=== PATIENT | male | born 1955 | race Hispanic/Latino ===

== ENCOUNTER 2017-09-07 01:14 | Observation (INO) | payer OTHER, SELFPAY ==
[2017-09-07 02:15] VITALS: BMI 35.2
[2017-09-07] MEDS ORDERED: Bisacodyl 5 MG TAB PO PRN (02:43)
[2017-09-07] MEDS ORDERED: Ondansetron HCl/PF 4 MG/2 ML Vial IVP PRN (02:43)
--- NOTE | 2017-09-07 03:46 | PDOC.EVN ---
Event Note - Event Note Event Note: H&P dictation [id number]
[2017-09-07] MEDS ORDERED: Acetaminophen 325 MG TAB PO PRN (04:38)
--- NOTE | 2017-09-07 04:39 | PDOC.EVN ---
Event Note - Event Note Event Note: pt c/o chest pressure like something sitting on his chest hx of CAD check troponin, EKG prn: nitro sl, acetaminophen, tramadol
[2017-09-07 04:41] LABS: #Basophils 0.1 thou/uL (0.0-0.2); #Eosinphils 0.2 thou/uL (0.0-0.7); #Lymphocytes 1.4 thou/uL (1.20-3.40); #Monocytes 0.3 thou/uL (0.11-0.59); #Neutrophils 2.7 thou/uL (1.40-6.50); %Basophils 1.2 % (0.0-1.0); %Eosinophils 4.3 % (0.0-10.0); %Lymphocytes 29.1 % (21.0-51.0); %Monocytes 7.2 % (0.0-10.0); %Neutrophils 58.3 % (42.0-75.0); Hemoglobin 13.6 g/dL (14.0-18.0); Mean Corpuscular HGB CONC 34.3 g/dL (32.0-36.0); Mean Corpuscular Hemoglobin 29.2 pg (27.0-31.0); Mean Platelet Volume 7.1 fL (7.4-10.4); Platelet Count 247 thou/uL (130-400); RBC Distribution Width 13.1 % (11.5-14.5); Red Blood Cell (RBC) Count 4.66 mill/uL (4.70-6.10); White Blood Cell (WBC) Count 4.7 thou/uL (4.8-10.8)
[2017-09-07 04:51] LABS: Anion Gap 13 mmol/L (10-20); BUN (Urea Nitrogen) 14 mg/dL (8.4-25.7); Calc. Creatinine Clearance 111 mL/min (70-130); Calcium 9.4 mg/dL (7.8-10.44); Carbon Dioxide 23 mmol/L (23-31); Chloride 107 mmol/L (98-107); Estimated GFR-MDRD 78; Glucose 112 mg/dL (80-115); Sodium 139 mmol/L (136-145)
[2017-09-07] MEDS: Nitroglycerin 0.4 MG TAB (25 Tab Bottle) SL PRN ×2 (05:01→05:08)
[2017-09-07 05:37] LABS: Troponin I Less than 0.010 ng/mL (< 0.028)
[2017-09-07] MEDS ORDERED: CRANBERRY FRUIT EXTRACT PO SCH (09:00)
[2017-09-07] MEDS ORDERED: BREXPIPRAZOLE 1.5 MG PO SCH (09:00)
[2017-09-07] MEDS ORDERED: LEVOMEFOLATE PO SCH (09:00)
[2017-09-07] MEDS ORDERED: ALGAL OIL PO SCH (09:00)
[2017-09-07] MEDS ORDERED: Enoxaparin Sodium 30 MG/0.3 ML SYRINGE SC SCH (09:00)
[2017-09-07] MEDS ORDERED: Famotidine/PF 20 mg/2ml Vial SLOW IVP SCH (09:00)
[2017-09-07] MEDS: traMADol HCl 50 MG TAB PO PRN (09:27)
[2017-09-07] MEDS: Potassium Chloride 10 MEQ TAB PO SCH (09:28)
[2017-09-07] MEDS: Finasteride 5 MG TAB PO SCH (09:28)
[2017-09-07] MEDS: Torsemide 20 MG TAB PO SCH (09:28)
[2017-09-07] MEDS: Multivitamin W/ Minerals 1 TAB PO SCH (09:28)
[2017-09-07] MEDS: Cyanocobalamin (Vitamin B-12) 1,000 MCG TAB PO SCH (09:30)
[2017-09-07] MEDS: Docusate 100 MG CAP PO SCH ×2 (09:30→20:54)
[2017-09-07] MEDS: Gabapentin 300 MG CAP PO SCH ×3 (09:30→20:54)
[2017-09-07 10:55] LABS: Troponin I Less than 0.010 ng/mL (< 0.028)
[2017-09-07] MEDS ORDERED: Chloraseptic Spray 180 ml Bottle PO PRN (11:23)
[2017-09-07] MEDS: Ubidecarenone 50 MG CAP PO SCH (12:58)
[2017-09-07] MEDS: Doxazosin Mesylate 4 MG TAB PO SCH (12:58)
--- NOTE | 2017-09-07 16:07 | HP ---
PRIMARY CARE PHYSICIAN: Out of town in [place]. CHIEF COMPLAINT: Difficulty swallowing. HISTORY OF PRESENT ILLNESS: This is a 62-year-old male with a prior history of hypertension, coronary artery disease, and CVA in the past, who presents with a 3-4 week history of feeling that there is "something in his throat" particularly with swallowing. He describes a sensation that there is something sitting in the back of his throat that is preventing him from able to complete swallowing that is mild when he is upright, severe when he is lying flat and to the point that over the last 2 days, it has been causing him to choke while he tries to sleep at night and therefore, he has been sleeping upright. In addition, it has caused his CPAP to turn off as well while he has been at home. Patient denies any similar prior episodes. In recent history, he does note that in the past month, he had approximately 10 days of the prolonged upper respiratory infection which he called "flu" but was not tested for such and he was able to improve without requiring any hospitalization or additional medications. At the time of my evaluation, the patient has continued symptoms. Patient was initially seen at the [facility] in [place] before being transferred to our facility for admission. REVIEW OF SYSTEMS: As per HPI. Constitutional: No recent fevers or chills. No significant weight loss or gain. HEENT: No headaches, no dizziness, no visual changes. Patient with swallowing difficulties as noted above mostly with lying down. He has been able to tolerate his baseline diet. Patient has not noticed any change in his speech. He has noticed that he has been over the same time frame having increased nosebleeds, particularly out of his left nostril exclusively. Overall, he says that his left nostril, although it was the one that has the most nosebleeds, has a lot less congestion than his right nostril at this point in time. Cardiovascular: No chest pain, chest pressure, or palpitations. Respiratory: As noted above. No cough, no shortness of breath, no dyspnea with exertion. Gastrointestinal: No nausea, vomiting, abdominal pain, diarrhea, or constipation issues. Genitourinary: No dysuria, changes in urinary frequency, or quantity. Musculoskeletal: No new myalgias or arthralgias. The remainder of the review of systems, otherwise negative. PAST MEDICAL HISTORY: As per above includes hypertension, CVA, NC, BPH, GERD, and obstructive sleep apnea on a CPAP. PAST SURGICAL HISTORY: No prior ENT surgeries. HOME MEDICATIONS: Please see the EMR for full details. His confirmed list currently includes the following; cranberry fruit extract, essentially CoQ10, Levomefolate and Algal, gabapentin 300 mg p.o. t.i.d., brexpiprazole 1.5 mg p.o. daily, potassium chloride 10 mEq take p.o. daily, cyanocobalamin ( vitamin B12) 500 mg p.o. daily, aspirin 81 mg p.o. daily, multivitamin 80 mcg p.o. daily, doxazosin 2 mg p.o. daily, finasteride 5 mg p.o. daily, omeprazole 20 mg p.o. daily, minocycline 100 mg p.o. daily, irbesartan 300 mg p.o. daily, torsemide 20 mg p.o. daily. ALLERGIES: Includes SULFA ANTIBIOTICS without a noted reaction. FAMILY HISTORY: Patient denies any known family history of ear, nose, throat issues or cancers. SOCIAL HISTORY: No tobacco, no alcohol, no illicit drug use. 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 He endorses wishing to be FULL CODE at this point in time. PHYSICAL EXAMINATION: GENERAL: Patient is awake, alert, appropriate, in no acute distress, seated in the hospital bed. HEENT: Equal ocular motions are intact. Patient is normocephalic, atraumatic. Posterior oropharyngeal, no exudate or erythema noted. There appears to be no change in the tonsillar position between the patient's sitting upright and lying flat. He has a small posterior oropharynx that has prominent tonsils in a high palate. No noted erythema as noted above. Nasal examination demonstrates no nasal mucosal erythema or visible polyps or ulcerations and both sides appear to be approximately equal without a significant nasal septum deviation noted. CARDIOVASCULAR: S1, S2. No murmurs, rubs, or gallops. Pulses 2+ bilateral upper extremities, no pitting pedal edema. RESPIRATORY: Grossly clear to auscultation, reasonable air movement. No wheezes, rales, or rhonchi. ABDOMEN: Positive bowel sounds. Large, obese, soft, nontender to palpation. MUSCULOSKELETAL: Moving all 4 extremities independently and able to sit up and reposition in the bed without difficulty or assistance. LABORATORY DATA: Currently, no labs available. He did have a CT of the head and neck from the outside institution that was reviewed by myself. CT of the head essentially negative for any evidence of acute bleed. CT of the neck, I am not appreciating any evidence of abscess formation or mass. ASSESSMENT AND PLAN: This is a 62-year-old male who initially presents with difficulty swallowing. 1. Difficulty swallowing, essentially dysphagia. We will start with a speech evaluation for a swallow evaluation, patient will be n.p.o. except for his medications, sips of water, and ice chips. If this is negative, then to consider a GI consultation if that is unrevealing, then to consider perhaps an ENT consultation. 2. Obstructive sleep apnea. Patient will continue on his home regimen. 3. Hypertension, patient will continue on his home regimen without change. 4. Prior history of myocardial infarction and cerebrovascular accident, continue on his medical regimen. Admit the patient observation status to medical-surgical. Activity as tolerated. Thank you for asked me to care for the patient. Questions or concerns, please contact me at [facility]. ARON
--- NOTE | 2017-09-07 16:43 | EKG ---
Test Reason : Blood Pressure : / mmHG Vent. Rate : 079 BPM Atrial Rate : 079 BPM P-R Int : 162 ms QRS Dur : 076 ms QT Int : 358 ms P-R-T Axes : 025 006 015 degrees QTc Int : 410 ms Normal sinus rhythm Inferior infarct , age undetermined Anterior infarct , age undetermined Poor anterior R wave progression Abnormal ECG No previous ECGs available Confirmed by DR. Rishi MAHMOOD ([id number]) on 09/07/2017 4:43:11 PM Referred By: ARGENIS Confirmed By:DR. Rishi MAHMOOD
[2017-09-07 17:25] LABS: Troponin I Less than 0.010 ng/mL (< 0.028)
[2017-09-07] MEDS: Famotidine 40 MG/4 ML VIAL SLOW IVP SCH (20:54)
[2017-09-07 23:11] LABS: Troponin I Less than 0.010 ng/mL (< 0.028)
[2017-09-08 05:26] LABS: #Basophils 0.1 thou/uL (0.0-0.2); #Eosinphils 0.3 thou/uL (0.0-0.7); #Lymphocytes 2.1 thou/uL (1.20-3.40); #Monocytes 0.5 thou/uL (0.11-0.59); #Neutrophils 3.9 thou/uL (1.40-6.50); %Basophils 1.1 % (0.0-1.0); %Eosinophils 4.1 % (0.0-10.0); %Lymphocytes 30.4 % (21.0-51.0); %Monocytes 6.8 % (0.0-10.0); %Neutrophils 57.5 % (42.0-75.0); Anion Gap 11 mmol/L (10-20); Calcium 9.8 mg/dL (7.8-10.44); Carbon Dioxide 26 mmol/L (23-31); Chloride 107 mmol/L (98-107); Hemoglobin 14.7 g/dL (14.0-18.0); Mean Corpuscular HGB CONC 33.5 g/dL (32.0-36.0); Mean Corpuscular Hemoglobin 28.7 pg (27.0-31.0); Mean Corpuscular Volume 85.7 fl (80.0-94.0); Mean Platelet Volume 6.8 fL (7.4-10.4); Platelet Count 315 thou/uL (130-400); Potassium 3.9 mmol/L (3.5-5.1); RBC Distribution Width 13.5 % (11.5-14.5); Red Blood Cell (RBC) Count 5.11 mill/uL (4.70-6.10); Sodium 140 mmol/L (136-145); White Blood Cell (WBC) Count 6.8 thou/uL (4.8-10.8)
[2017-09-08 05:34] LABS: BUN (Urea Nitrogen) 14 mg/dL (8.4-25.7); Calc. Creatinine Clearance 104 mL/min (70-130); Estimated GFR-MDRD 73; Glucose 121 mg/dL (80-115)
--- NOTE | 2017-09-08 07:46 | CON ---
DATE OF CONSULTATION: 09/07/2017 REFERRING DOCTOR: Dr. Inocente Hinton, [facility]. REASON FOR CONSULTATION: Dysphagia. HISTORY OF PRESENT ILLNESS: Juvenal Deleon is a very pleasant 62-year-old male with a history of chron ic acid reflux over the years. He does take omeprazole on a regular basis. The patient has a histor y of sleep apnea and does use CPAP. He says he has been using CPAP for the last year or so. The dys phagia is somewhat difficult to understand. He has no difficulty swallowing solid food or the liquid . He says he tried to swallow saliva attempted to swallow it 3 or 4 times before he can swallo w it. He also has dry mouth. The patient also has odynophagia. He also feels something in the back of the throat, and if he tries to swallow it, it does not really go down. He also states that his m outh is very dry all the time. He has no painful swallowing, but he has been having it over the last 7-10 days. His reflux symptoms are well controlled. He has no heartburn. No painful swallowing. No history of regurgitation fluid. His bowel movements are fairly regular. He has no other re levant history. At the time of the visit, he appears very comfortable. He is not short-winded and h e is in no distress. He denies any chest tightness or heaviness over the chest. He has no abdominal pain, no nausea, or vomiting. He has no relevant history. ALLERGIES: SULFA. SOCIAL HISTORY: He does not smoke or drink alcohol. MEDICAL ILLNESSES: 1. Hypertension. 2. Coronary artery disease, not had a stent placement. 3. Sleep apnea. 4. Cerebrovascular accident, in recovery. 5. Kidney stones, he has passed multiple times and did not need any surgical intervention. 6. Benign prostatic hypertrophy. 7. Chronic acid reflux. SURGERIES: He had some surgery over the left ankle after a fracture many years ago. He had no surge ry on his abdomen. FAMILY HISTORY: A strong family history of hypertension. Father of stomach cancer. Aunt had l iver cancer. Mother's side heart disease. MEDICATIONS: List reviewed. REVIEW OF SYSTEMS: A 10-point system review: Constitutional: No history of fever. No weight loss. His exercise tolerance is good and gets around very well. HEENT: Vision not impaired. Hearing is good. No nosebleed. Throat: No sore throat. Does feel some fullness in throat. Respiratory syst em: History of coughing off and on. No hemoptysis. No wheezing. Cardiovascular system: No chest pain, no palpitation, no exertional dyspnea, orthopnea, or PND. Gastrointestinal: No abdominal pain , no hematochezia, no melena, no dysphagia. Genitourinary: History of kidney stones and has passed some of them in the past. At the present time, no dysuria and no hematuria. Musculoskeletal: No ba ck pain, no muscle pain. Neuroendocrine/Hematological: Nonrelevant. Neuropsychiatric: History of depression. PHYSICAL EXAMINATION: GENERAL: The patient is a very pleasant male, appears very comfortable. He is in no distress. He i s awake, alert, and communicative. VITAL SIGNS: Actually very stable. He is afebrile. His pulse is 74, blood pressure 147/93. HEENT: Conjunctivae clear. NECK: Supple. No adenitis or thyromegaly noted. CARDIOVASCULAR SYSTEM: First and second heart sounds are normal. LUNGS: Clear to auscultation. ABDOMEN: Soft to palpate. Abdomen is nondistended. Abdomen is nontender. There are no organomegal y or masses. EXTREMITIES: No edema. LABORATORY DATA: WBC 4700, hemoglobin 13.6, hematocrit 39.7, platelet count is 247,000 polymorphs 58 , lymphocytes 29, monocytes 7. Serum chemistries show sodium is 139, potassium 4, chloride 107, bica rbonate 23, BUN is 14, creatinine is 0.98, glucose 112, calcium 9.4, troponin less than 0.10. CLINICAL IMPRESSION: A 62-year-old male with: 1. A history of fullness in throat and also has a dry mouth. He says he tried to swallow saliva mul tiple times to make it go down. There is no definite history of any solid food dysphagia. His sympt oms are difficult to explain. 2. Chronic acid reflux, longstanding, omeprazole. 3. Hypertension. 4. Depression. 5. Sleep apnea. 6. History of kidney stones. 7. History of colonoscopy two years ago and was totally negative. PLAN: 1. Diet as tolerated. 2. We will plan EGD tomorrow.
[2017-09-08] MEDS ORDERED: Enoxaparin Sodium 40 MG/0.4 ML SYRINGE SC SCH (09:00)
[2017-09-08] MEDS: Docusate 100 MG CAP PO SCH (09:20)
[2017-09-08] MEDS: Cyanocobalamin (Vitamin B-12) 1,000 MCG TAB PO SCH (09:20)
[2017-09-08] MEDS: Finasteride 5 MG TAB PO SCH (09:20)
[2017-09-08] MEDS: Multivitamin W/ Minerals 1 TAB PO SCH (09:20)
[2017-09-08] MEDS: Potassium Chloride 10 MEQ TAB PO SCH (09:21)
[2017-09-08] MEDS: Famotidine 40 MG/4 ML VIAL SLOW IVP SCH (09:21)
[2017-09-08] MEDS: Gabapentin 300 MG CAP PO SCH (09:21)
[2017-09-08] MEDS: Doxazosin Mesylate 4 MG TAB PO SCH (09:22)
[2017-09-08] MEDS: Torsemide 20 MG TAB PO SCH (09:24)
[2017-09-08] MEDS: Ubidecarenone 50 MG CAP PO SCH (09:25)
[2017-09-08] MEDS: traMADol HCl 50 MG TAB PO PRN (09:30)
--- NOTE | 2017-09-08 13:54 | OP ---
DATE OF SURGERY: 09/08/2017 OPERATIVE PROCEDURE: Esophagogastroduodenoscopy with biopsy. PREOPERATIVE DIAGNOSES: A 62-year-old male with a history of acid reflux, comes in with some atypica l symptoms and history of dysphagia. POSTOPERATIVE DIAGNOSES: 1. Normal vocal cord, but large amount of mucus in the throat, suctioned out. 2. The esophageal mucosa appears normal except for distal esophagus where there is linear erythemato us streaks seen. 3. Otherwise, normal stomach and duodenum. 4. No esophageal stricture seen. PROCEDURE NOTE: The patient was placed on his left lateral position and was given sedation by Anesth esia Department. A Pentax video gastroscope under direct vision was passed down the oropharynx, past the GE junction, into the stomach. The vocal cords appeared healthy. The patient had large amount of mucus in the throat, which was suctioned out. Although, the patient complains of dysphagia, at en doscopy, the esophageal lumen was opened. The mucosa appears normal throughout the esophagus. Howev er, at the GE junction, there is linear erythematous streaks seen. This is mild. The fundus, cardia , gastric body, gastric antrum, no pathology seen. The duodenal bulb and descending duodenum, no pat hology seen. The scope was a large scope, therapeutic scope which measures in diameter around about 38 Tamaz[place], which easily advanced without any resistance. The stomach was decompressed and the scope removed. RECOMMENDATION: 1. Continue PPI. 2. Diet as tolerated. 3. From a GI standpoint, no further workup plan.
[2017-09-08 14:55] VITALS: BP 150/92; TEMP 98.3
[2017-09-08] MEDS ORDERED: PROPOFOL 200 MG/20 ML VIAL ONE (20:05)
[2017-09-08] MEDS ORDERED: Lidocaine 1% PF 5 ML VIAL ONE (20:05)
--- NOTE | 2017-09-09 07:18 | DIS ---
DATE OF ADMISSION: 09/07/2017 DATE OF DISCHARGE: 09/08/2017 DISCHARGE DISPOSITION: Home. FOLLOWUP: 1. Follow up with primary care physician at [facility]. 2. Outpatient follow up with Pulmonary for further testing. 3. The patient is allergic to SULFA. The patient was seen on the day of discharge. Denies any new complaints, no chest pain, shortness of breath, palpitations. DISCHARGE MEDICATIONS: Same as admission medication. No changes were made. BRIEF HOSPITAL COURSE: Patient is a 62-year-old male with hypertension, obstructive sleep apnea on C PAP, coronary artery disease, and GERD who presented to the hospital with difficulty swallowing with questionable shortness of breath. Please refer to the history and physical dated 09/07/2017 for furt her details. The patient was admitted to the medical floor with a diagnosis of swallowing difficulty with suspecte d anginal equivalent. Serial troponins were negative. Echocardiogram showed left ventricular ejecti on fraction of 55%-60% with mild concentric left ventricular hypertrophy and grade 1/3 diastolic dysf unction. He initially presented to [facility] room where he had a CT scan of the soft tissu e of the neck that was essentially negative except for 4.5 cm thoracic aortic aneurysm. Patient was unaware of this. He was seen by gastroenterology and underwent EGD that was essentially normal. He was seen by Speech Therapy and his diet was modified. He will follow up with Speech Therapy as outpa tient for further testing. He was also advised to follow up with pulmonary as outpatient. FINAL DIAGNOSES: 1. Difficulty swallowing. Diet was modified. 2. Negative EGD, this admission. 3. Obstructive sleep apnea on CPAP. 4. Hypertension. 5. Obesity with a BMI 35.2. 6. Coronary artery disease. 7. History of cerebrovascular accident. 8. Benign prostatic hypertrophy. 9. History of renal calculi. 10. Thoracic aortic aneurysm, 4.5 cm. Further testing per PCP. 11. Gastroesophageal reflux disease. 12. Chronic kidney disease stage 2. Plan of care was discussed with the patient and the family in detail. He stated understanding.
== END 2017-09-08 14:56 | disposition home or self-care (01) ==
LOC: T4-B 01:18
PROVIDERS: ADMIT Internal Medicine; ATTEND Internal Medicine
PROC: 0DB58ZX Excision of Esophagus, Via Natural or Artificial Opening Endoscopic, Diagnostic (ICD-10-PCS; principal; 2017-09-08)
DX: K20.9 Esophagitis, unspecified (principal); K21.9 Gastro-esophageal reflux disease without esophagitis; G47.33 Obstructive sleep apnea (adult) (pediatric); I25.10 Atherosclerotic heart disease of native coronary artery without angina pectoris; I12.9 Hypertensive chronic kidney disease with stage 1 through stage 4 chronic kidney disease, or unspecified chronic kidney disease; N18.2 Chronic kidney disease, stage 2 (mild); N40.0 Benign prostatic hyperplasia without lower urinary tract symptoms; I25.2 Old myocardial infarction; E66.9 Obesity, unspecified; Z68.35 Body mass index [BMI] 35.0-35.9, adult; Z88.2 Allergy status to sulfonamides; Z99.89 Dependence on other enabling machines and devices; Z86.73 Personal history of transient ischemic attack (TIA), and cerebral infarction without residual deficits
CPT/HCPCS: 36415; 80048; 84484; 85025; 88305; 88312; 88313; 93005; 93010; 93306; 96372; 96375; 96376; G0378; G8996-GN-CJ; G8997-GN-CI; J1650; J2001; J2405; J2704